=== PATIENT | female | born 1945 | race Caucasian/White ===

== ENCOUNTER → 2017-06-20 | Outpatient (CLI) | payer OTHER, MEDICARE ==
[~2017-06-20] MED LIST: ASPI81TA28 PO; CALC-354 PO; CITA10TA8 PO; CLC100X PO; MULT-513 PO; OXYC5TAB PO; TRIA37.5 PO
--- NOTE | 2017-06-21 14:56 | MAMMOGRAPHY REPORT ---
UNILATERAL LEFT DIGITAL SCREENING MAMMOGRAM TOMOSYNTHESIS WITH CAD: 06/20/2017 CLINICAL HISTORY: Routine screening. Patient has no complaints. TECHNIQUE: Left breast tomosynthesis in addition to standard 2D mammography was performed. Current st udy was also evaluated with a Computer Aided Detection (CAD) system. COMPARISON: Comparison is made to exams dated: 03/24/2016 mammogram, 12/23/2014 mammogram, 06/23/2014 john mogram, 04/15/2014 mammogram, 04/10/2013 mammogram, and 09/21/2012 mammogram - [facility] nter. BREAST COMPOSITION: There are scattered areas of fibroglandular density in the left breast. FINDINGS: There is a 7 mm focal asymmetry in the upper outer posterior left breast, best seen on the tomosynthesis images (CC tomosynthesis slice 10/66 and MLO tomosynthesis slice 12/68), for which add itional spot compression tomosynthesis views and possible ultrasound are recommended. The CC project ion should also be repeated with nipple in profile. There is a stable biopsy marker clip in the anterior left breast. No other suspicious mass, architec tural distortion or cluster of microcalcifications is seen. IMPRESSION: ACR BI-RADS CATEGORY 0: INCOMPLETE EVALUATION: NEED ADDITIONAL IMAGING EVALUATION The 7 mm focal asymmetry in the upper outer posterior left breast needs additional evaluation. A rep eat left CC tomosynthesis HD view should also be performed with nipple in profile. The patient will be called to schedule an appointment. Approximately 10% of breast cancers are not detected with mammography. A negative mammographic report should not delay biopsy if a clinically suggestive mass is present. Carolynn Posada M.D. ay/:06/20/2017 14:26:18 Site Promotion Agent: Keira LIM(Trent)(M), [facility] letter sent: Addl Imaging 0 BI-RADS Code: ACR BI-RADS Category 0: Incomplete Evaluation: Need Additional Imaging Evaluation
== END | disposition home or self-care (01) ==
LOC: C.MAMM 11:48
PROVIDERS: ATTEND Family Medicine
DX: Z12.31 Encounter for screening mammogram for malignant neoplasm of breast (principal); N64.89 Other specified disorders of breast; Z90.11 Acquired absence of right breast and nipple

== ENCOUNTER → 2017-06-29 | Outpatient (CLI) | payer OTHER, MEDICARE ==
--- NOTE | 2017-06-29 14:38 | MAMMOGRAPHY REPORT ---
UNILATERAL LEFT DIGITAL DIAGNOSTIC MAMMOGRAM TOMOSYNTHESIS AND TARGETED LEFT ULTRASOUND: 06/29/2017 CLINICAL HISTORY: Callback from screening mammogram for left breast asymmetry. TECHNIQUE: Breast tomosynthesis in addition to standard 2D mammography was performed. Spot compress ion left CC and MLO 2-D and tomosynthesis images and repeat 2-D left cc view with the nipple in profi le were obtained. COMPARISON: Comparison is made to exams dated: 03/24/2016 mammogram, 12/23/2014 mammogram, 06/23/2014 john mogram, 06/23/2014 stereotactic biopsy, 04/15/2014 mammogram, and 04/10/2013 mammogram - [facility] [place]. BREAST COMPOSITION: There are scattered areas of fibroglandular density in the left breast. FINDINGS: Spot compression views demonstrate a persistent ill-defined low density focal asymmetry jeannette suring 9 mm in the left upper outer quadrant. On the tomosynthesis images, the asymmetry is of mixed density with some fat seen coursing through it. Targeted ultrasound was performed of the left upper outer quadrant in the region of the mammographic asymmetry. No suspicious solid masses are evident. In the left far superior breast at approximately 1:00, 12 cm from the nipple, there are subdermal ill-defined hyperechoic areas with a few central hy poechoic portions. The areas are ill-defined and therefore difficult to measure but the largest marci on measures 2.1 cm in size. It is unclear if this may correspond with the mammographic asymmetry. T he finding has sonographic and mammographic features of possible fat necrosis, however, the patient d enies any known trauma to the region. IMPRESSION: ACR-BI-RADS CATEGORY 3: PROBABLY BENIGN, TARGETED ULTRASOUND ACR-BI-RADS CATEGORY 3: PRO BABLY BENIGN Persistent low density focal asymmetry in the left upper outer quadrant mammographically. Ill-define d subdermal hyperechoic areas are seen within the left breast at 1:00 on ultrasound, which may corres pond with the asymmetry. The findings have mammographic and sonographic features of possible fat nec rosis, however, the patient denies any known trauma to the region. Recommend follow-up diagnostic to mosynthesis mammograms and possible ultrasound of the left breast in 6-8 weeks to reevaluate. The patient has been verbally notified of the results. Approximately 10% of breast cancers are not detected with mammography. A negative mammographic report should not delay biopsy if a clinically suggestive mass is present. Lyla iKm M.D. ah/:06/29/2017 11:52:06 [place] Worker: Keira LIM(Trent)(M), [facility] letter sent: Follow Up Recommended 3 BI-RADS Code: ACR-BI-RADS Category 3: Probably Benign Ultrasound BI-RADS: ACR-BI-RADS Category 3: Pr obably Benign
== END | disposition home or self-care (01) ==
LOC: C.MAMM 11:01
PROVIDERS: ATTEND Family Medicine
DX: N64.89 Other specified disorders of breast (principal); Z90.11 Acquired absence of right breast and nipple

== ENCOUNTER → 2017-08-17 | Outpatient (CLI) | payer OTHER, MEDICARE ==
--- NOTE | 2017-08-17 15:17 | MAMMOGRAPHY REPORT ---
UNILATERAL LEFT DIGITAL DIAGNOSTIC MAMMOGRAM TOMOSYNTHESIS WITH CAD AND TARGETED LEFT ULTRASOUND: 08/17 CLINICAL HISTORY: Short interval follow-up of left breast asymmetry. TECHNIQUE: Breast tomosynthesis in addition to standard 2D mammography was performed. Current study was also evaluated with a Computer Aided Detection (CAD) system. Left CC and MLO 2-D and tomosynthes is images were obtained. COMPARISON: Comparison is made to exams dated: 06/29/2017 mammogram, 06/29/2017 ultrasound, 06/20/2017 m ammogram, 03/24/2016 mammogram, 12/23/2014 mammogram, and 06/23/2014 mammogram - [facility]. BREAST COMPOSITION: There are scattered areas of fibroglandular density in the left breast. FINDINGS: Again noted is a mixed density 8 mm focal asymmetry within the left upper outer quadrant, b est seen on the tomosynthesis images. The asymmetry is stable compared to the June 2017 exam and contains interspersed fat best seen on the MLO tomosynthesis images. The remainder of the left breast is stable compared to prior exams, without suspicious masses, calcifications, or areas of architectu ral distortion noted. A biopsy marker clip is again noted within the left 12:00 anterior breast. Li near scar markers denote scars on the left breast. Scattered benign-appearing calcifications are sta ble. Targeted ultrasound was performed of the left upper outer quadrant in the region of the mammographic asymmetry. The previously seen ill-defined hyperechoic areas in the left 1:00 breast, 12 cm from the nipple, are no longer clearly evident and could represent resolved fat necrosis. The remainder of t he left upper outer quadrant demonstrates no suspicious masses or other suspicious sonographic abnorm alities, with no clear correlate for the mammographic asymmetry seen. Given the presence of fat inte rspersed within the asymmetry mammographically, it is probably benign and may represent fat necrosis versus normal fibroglandular tissue. IMPRESSION: ACR-BI-RADS CATEGORY 3: PROBABLY BENIGN, TARGETED ULTRASOUND ACR-BI-RADS CATEGORY 3: PRO BABLY BENIGN Persistent mixed density asymmetry within the left upper outer quadrant mammographically, which is st able dating back to the June 2017 exam. No clear sonographic correlate is evident. Given the pre sence of fat interspersed within the asymmetry on the tomosynthesis images, it is probably benign and may represent fat necrosis versus normal fibroglandular tissue. Recommend follow-up diagnostic stephane synthesis mammograms and possible ultrasound of the left breast in 6 months to confirm longer stabili ty. The patient has been verbally notified of the results. Approximately 10% of breast cancers are not detected with mammography. A negative mammographic report should not delay biopsy if a clinically suggestive mass is present. Lyla Kim M.D. ah/:08/17/2017 11:49:57 Recycler: Keira Fernández, [facility] letter sent: Follow Up Recommended 3 BI-RADS Code: ACR-BI-RADS Category 3: Probably Benign Ultrasound BI-RADS: ACR-BI-RADS Category 3: Pr obably Benign
== END | disposition home or self-care (01) ==
LOC: C.MAMM 08:54
PROVIDERS: ATTEND Family Medicine
DX: N64.89 Other specified disorders of breast (principal)